=== PATIENT | male | born 1970 | race Caucasian/White ===

== ENCOUNTER 2016-11-26 21:21 | Emergency (ER) | payer BC ==
[2016-11-26 21:29] VITALS: BP 123/84
--- NOTE | 2016-11-26 21:35 | EDM.PDOC ---
ED HPI GENERAL MEDICAL PROBLEM - General Chief Complaint: Lower Extremity Injury/Pain Stated Complaint: SWOLLEN/PAINFUL LEFT FOOT Time Seen by Provider: 11/26/16 21:35 - History of Present Illness INITIAL COMMENTS - FREE TEXT/NARRATIVE: 46-year-old male presents with worsening sores on his feet. Patient was fishing in the water and had a leech attached to his medial ankle on the left lateral ankle on the right these areas to be getting increasingly more tender. With increased redness and warmth. Patient also has sunburn on his legs this is not bothering him. When the patient was fishing in the water heat had a thorn with the heel of his right foot this is been bothering him a little bit as well this does not have surrounding erythema or warmth on it however his got some drainage out of it. The injuries to his feet occurred 4 days ago Left Feet Pain Score (Numeric/FACES): 7 - Related Data Allergies Allergy/AdvReac Type Severity Reaction Status Date / Time No Known Allergies Allergy Verified 11/26/16 21:29 Home Meds: Home Meds . [No Known Home Meds] 11/26/16 [History] Past Medical History - Past Health History Medical/Surgical History: Denies Medical/Surgical History Social & Family History - Family History Family Medical History: Noncontributory - Tobacco Use Smoking Status *Q: Never Smoker - Recreational Drug Use Recreational Drug Use: No Review of Systems - Review of Systems Review Of Systems: See Below Constitutional: Reports: No Symptoms Respiratory: Reports: No Symptoms Cardiovascular: Reports: No Symptoms GI/Abdominal: Reports: No Symptoms ED EXAM, GENERAL - Physical Exam Exam: See Below Exam Limited By: No Limitations General Appearance: Alert, No Apparent Distress Head: Atraumatic, Normocephalic Neck: Normal Inspection, Supple, Non-Tender, Full Range of Motion Respiratory/Chest: No Respiratory Distress, Lungs Clear, Normal Breath Sounds Cardiovascular: Regular Rate, Rhythm, No Edema, No Murmur Extremities: Other (Medial aspect of left foot along the heel he has a bite site from the Bae this has surrounding erythema and warmth no drainage noted lateral aspect of right foot similar lesion with surrounding erythema and warmth.) Course - Vital Signs Last Recorded V/S: Last Vital Signs Temp 36.7 C 11/26/16 21:26 Pulse 67 11/26/16 21:26 Resp 16 11/26/16 21:26 BP 123/84 11/26/16 21:26 Pulse Ox 98 11/26/16 21:26 - Orders/Labs/Meds Orders: Active Orders 24 hr Category Date Time Status Vaccines to be Administered [RC] PER UNIT ROUTINE Care 11/26/16 21:51 Active Meds: Medications Discontinued Medications Generic Name Dose Route Start Last Admin Trade Name Krystle PRN Reason Stop Dose Admin Diphtheria/Tetanus/Acell Pertussis 0.5 ml 11/26/16 21:51 11/26/16 21:58 Boostrix IM 11/26/16 21:52 0.5 ml .ONCE ONE Administration - Re-Assessments/Exams Free Text/Narrative Re-Assessment/Exam: 11/26/16 21:58 Patient's tetanus will be updated patient be started on clindamycin 300 mg 4 times a day from the machine in the waiting room. Departure - Departure Time of Disposition: 21:59 Disposition: Home, Self-Care 01 Clinical Impression: Cellulitis of foot - Discharge Information Instructions: Cellulitis, Adult, Cellulitis, Adult, [id number] Referrals: PCP,None [Primary Care Provider] - Forms: ED Department Discharge Additional Instructions: Return to the emergency room with any questions or problems or worsening symptoms. Follow up in the Hospital clinic at the end of this week for recheck. [id number] You've been started on clindamycin this is an antibiotic take it 4 times daily until all gone. - My Orders Last 24 Hours: My Active Orders 11/26/16 21:51 Vaccines to be Administered [RC] PER UNIT ROUTINE - Assessment/Plan Last 24 Hours: My Active Orders 11/26/16 21:51 Vaccines to be Administered [RC] PER UNIT ROUTINE
[2016-11-26] MEDS ORDERED: Diphtheria,Pertussis(Acell),Tetanus Vaccine 0.5 ML SDV inactive IM ONE (21:51)
== END 2016-11-26 22:06 | disposition home or self-care (01) ==
LOC: JD.ED 21:21
DX: L03.116 Cellulitis of left lower limb (principal); Z23 Encounter for immunization
CPT/HCPCS: 90471; 90715; 99283; 99283-25